=== PATIENT | male | born 1935 | race Caucasian/White ===

== ENCOUNTER 2022-05-14 22:08 | Emergency (ER) | payer MEDICARE ==
[~2022-05-14] VITALS: Ht 165.1 cm; Wt 65.3 kg
--- NOTE | 2022-05-14 22:13 | NUR ---
[facility]. TAKEN TO BED 2
--- NOTE | 2022-05-14 22:14 | NUR ---
Dr. Cano examining patient .
[2022-05-14] MEDS ORDERED: ACETAMINOPHEN EXTRA STRENGTH 500 MG TAB PO ONE (22:15)
--- NOTE | 2022-05-14 22:15 | NUR ---
Patient BIB by [facility] from [facility]. C/O fell x today. Per reported, patient fell, with out witness, patient complained of bilateral elbows pain, 8/10. A/O,X4, bilateral elbows pain, no wound, no laceration, pain rate 8/10. PMHx: Dementia, blind, DM, HTN, Anxiety.
[2022-05-14 22:16] VITALS: BP 118/66
--- NOTE | 2022-05-14 22:25 | NUR ---
Patient taken to CT scan via gurney.
[2022-05-14] MEDS ORDERED: RISP0.5T3 PO (22:27)
[2022-05-14] MEDS ORDERED: POTA10TA70 PO (22:27)
[2022-05-14] MEDS ORDERED: DIGO0.122 PO (22:27)
[2022-05-14] MEDS ORDERED: METO25TE2 PO (22:27)
[2022-05-14] MEDS ORDERED: FURO-572 PO (22:27)
[2022-05-14] MEDS ORDERED: METF-713 PO (22:27)
[2022-05-14] MEDS ORDERED: OMEP20EC11 PO (22:27)
[2022-05-14] MEDS ORDERED: OMEG1CAP32 PO (22:27)
[2022-05-14] MEDS ORDERED: DILT30TA18 PO (22:27)
[2022-05-14] MEDS ORDERED: DABI150C PO (22:27)
[2022-05-14] MEDS ORDERED: DOCU-299 PO (22:27)
--- NOTE | 2022-05-14 22:27 | NUR ---
Med- rec reviewed
--- NOTE | 2022-05-14 23:23 | NUR ---
Spoke with patient's son and update patient's status.
--- NOTE | 2022-05-14 23:26 | NUR ---
Patient 's son at bedside.
--- NOTE | 2022-05-14 23:41 | NUR ---
Assisted to restroom by his son. Per observation, patient had right foot DM wound.
--- NOTE | 2022-05-15 00:09 | NUR ---
Spoke with Lelo, staff of [facility] for update patient's status. ([phone])
--- NOTE | 2022-05-15 00:21 | NUR ---
Dr. Cano explained results and treatment plans.
[2022-05-15 00:25] VITALS: BP 122/66
--- NOTE | 2022-05-15 00:25 | NUR ---
Patient discharged with v/s stable. Written and verbal after care instructions given and explained. Patient verbalized understanding. Wheel Chair Assisted with to car. All questions addressed prior to discharge. Advised to follow up with PMD.
--- NOTE | 2022-05-15 00:33 | NUR ---
Spoke with Lelo, staff - patient will transport back to facility by his son (private auto).
== END 2022-05-15 00:25 | disposition home or self-care (01) ==
LOC: MED 22:08
DX: S53.401A Unspecified sprain of right elbow, initial encounter (principal); S09.90XA Unspecified injury of head, initial encounter; L97.519 Non-pressure chronic ulcer of other part of right foot with unspecified severity; Z79.899 Other long term (current) drug therapy; W19.XXXA Unspecified fall, initial encounter; Y93.89 Activity, other specified; Y92.89 Other specified places as the place of occurrence of the external cause; Y99.8 Other external cause status
CPT/HCPCS: 70450; 73080; 99284

== ENCOUNTER 2022-05-21 01:27 | Emergency (ER) | payer MEDICARE ==
[~2022-05-21] VITALS: Ht 175.3 cm; Wt 79.4 kg
[2022-05-21 01:27] VITALS: BP 120/70
[~2022-05-21 01:27] MED LIST: DABI150C PO; DIGO0.122 PO; DILT30TA18 PO; DOCU-299 PO; FURO-572 PO; METF-713 PO; METO25TE2 PO; OMEG1CAP32 PO; OMEP20EC11 PO; POTA10TA70 PO; RISP0.5T3 PO
--- NOTE | 2022-05-21 01:30 | NUR ---
Patient to bed 9
--- NOTE | 2022-05-21 01:45 | NUR ---
Dr. Posada at bedside assessing patient.
--- NOTE | 2022-05-21 02:00 | NUR ---
Patient awake, chest rise and fall symmetrical, lying in bed, no s/s of distress, on monitor.
[2022-05-21] MEDS ORDERED: NACL 0.9% 1,000 ML IV ONE (02:50)
[2022-05-21 03:09] LABS: BASOPHILS # (AUTO) 0.1 K/uL (0.00-0.22); BASOPHILS % (AUTO) 0.7 % (0.0-2.0); EOSINOPHILS # (AUTO) 0.4 K/uL (0-0.4); EOSINOPHILS % (AUTO) 4.7 % (0.0-4.0); HEMATOCRIT 37.1 % (36-52); HEMOGLOBIN 12.4 g/dL (12.0-18.0); LYMPHOCYTES # (AUTO) 1.7 K/uL (2.0-11.5); LYMPHOCYTES % (AUTO) 22.5 % (20.5-51.1); MEAN CORPUSCULAR HEMOGLOBIN 28 pg (27-31); MEAN CORPUSCULAR HGB CONC 33 g/dL (33-37); MEAN CORPUSCULAR VOLUME 82.7 fL (80-94); MONOCYTES # (AUTO) 0.9 K/uL (0.8-1.0); MONOCYTES % (AUTO) 11.7 % (1.7-9.3); NEUTROPHILS # (AUTO) 4.6 K/uL (1.8-7.7); NEUTROPHILS % (AUTO) 60.4 % (42.2-75.2); PLATELET COUNT (AUTO) 292 K/uL (140-450); RED BLOOD CELL COUNT(AUTO) 4.49 MIL/uL (4.20-6.10); RED CELL DISTRIBUTION WIDTH 17.4 % (11.6-13.7); WHITE BLOOD COUNT (AUTO) 7.7 K/uL (4.8-10.8)
[2022-05-21 03:27] LABS: ALBUMIN 3.3 g/dL (3.4-5.0); ANION GAP 11.7 (8-16); ASPARTATE AMINOTRANSFERASE 15 U/L (15-37); CARBON DIOXIDE 31.1 mmol/L (21-32); CHLORIDE 98 mmol/L (98-107); CREATININE 0.9 mg/dL (0.6-1.3); GLUCOSE 102 mg/dL (74-106); POTASSIUM 3.8 mmol/L (3.5-5.1); SODIUM SERUM 137 mmol/L (136-145); TOTAL BILIRUBIN 0.5 mg/dL (0.0-1.0); UREA NITROGEN, BLOOD 18 mg/dL (7-18)
[2022-05-21 04:18] LABS: APPEARANCE,URINE CLEAR (CLEAR); BILIRUBIN,URINE NEGATIVE (NEGATIVE); BLOOD, URINE NEGATIVE (NEGATIVE); COLOR,URINE YELLOW (YELLOW); LEUKOCYTE ESTERASE ,URINE NEGATIVE (NEGATIVE); NITRITE, URINE NEGATIVE (NEGATIVE); UGLUCOSE NEGATIVE (NEGATIVE)
--- NOTE | 2022-05-21 04:30 | NUR ---
Patient awake, chest rise and fall symmetrical, lying in bed, no s/s of distress, on monitor.
--- NOTE | 2022-05-21 07:00 | NUR ---
Patient awake, chest rise and fall symmetrical, lying in bed, no s/s of distress, on monitor.
--- NOTE | 2022-05-21 07:25 | NUR ---
Report given to AM shift nurse Shila RN. AM shift nurse Shila RN verbalized understanding of report, no further questions.
[2022-05-21 08:18] VITALS: BP 104/61
--- NOTE | 2022-05-21 08:56 | NUR ---
Patient to be transferred to [facility]. Is being transferred due to INSURANCE. Receiving facility has accepting physician and available space. ER physician has signed transfer form. Patient or responsible republican has agreed to transfer and signed form. Patient belongings inventoried and will be sent with patient. Copy of nursing notes, lab reports, EKG, Physicians Orders and X-rays to be sent with patient. Report called to ABHIJIT at receiving facility. [facility] ambulance service has been called for transfer. ETA is [id number].
--- NOTE | 2022-05-21 09:38 | NUR ---
pt. transferred to [place] via [facility]. pt. belongings and packet handed off to EMS personnel. pt.'s son Addy White was contacted and informed of the transfer.
== END 2022-05-21 09:38 | disposition short-term general hospital (02) ==
LOC: MED 01:27
DX: S51.012A Laceration without foreign body of left elbow, initial encounter (principal); Z20.822 Contact with and (suspected) exposure to COVID-19; R77.8 Other specified abnormalities of plasma proteins; E11.9 Type 2 diabetes mellitus without complications; I10 Essential (primary) hypertension; Z79.4 Long term (current) use of insulin; Z79.899 Other long term (current) drug therapy; W18.30XA Fall on same level, unspecified, initial encounter; Y93.89 Activity, other specified; Y92.89 Other specified places as the place of occurrence of the external cause; Y99.8 Other external cause status
CPT/HCPCS: 36415; 70450; 71045; 80053; 81003; 84484; 85025; 87426; 93005; 96360; 99285; J7030; Q0092